=== PATIENT | male | born 1990 | race Caucasian/White ===

== ENCOUNTER 2018-01-04 10:01 | Emergency (ER) | payer MEDICAID ==
[2018-01-04 10:06] VITALS: BMI 27.2
[2018-01-04 10:07] VITALS: BP 141/87
[2018-01-04] MEDS ORDERED: XYLOCAINE 1 % (PLAIN) ONE (10:35)
[2018-01-04] MEDS ORDERED: ROCEPHIN VIAL 1 GM ONE (10:36)
[2018-01-04] MEDS ORDERED: ROCEPHIN VIAL 1 GM IM ONE (10:36)
--- NOTE | 2018-01-04 10:39 | DR.GENAD ---
HPI - PCP Primary Care Physician: NFD - Complaint/Symptoms Chief Complaint Doctors Comments: Patient presents with complaint of pain on buttock of one week duration. He denies taking any medication for treatment except OTC products w/o relief. His pain level is 10/10, sharp, aggravated by sitting. Chief Complaint:: PT STATES " I HAVE ABCESS ON THE SIDE OF MY ASS HOLE". Self Treatment fo Chief Complaint: ASA - Source History Provided: Patient - Mode of Arrival Mode of Arrival: Ambulatory - Timing Onset of Chief Complaint: 12/30/17 PMH - PMH Past Medical History: No Past Surgical History: No - Family History History of Family Medical Conditions: No - Social History Does patient currently use any type of tobacco product: No Have you used tobacco products in the last 12 months: No Type of Tobacco Use: None Does any household member use tobacco: No Alcohol Use: None Lives With: Alone, Family Lives Where: Home - infectious screening In the last 2 months have you had wt loss of >10#?: NO Have you had fever, night sweats or hemotysis?: No Have you traveled outside the country in the last 6 months?: No Isolation: Standard ROS - Review of Systems Eyes: No Symptoms Reported ENTM: No Symptoms Reported Respiratoy: No Symptoms Reported Cardiovascular: No Symptoms Reported Gastrointestinal/Abdominal: No Symptoms Reported Genitourinary: No Symptoms Reported Neurological: No Symptoms Reported Musculoskeletal: No Symptoms Reported Integumentary: Lesions (Inferior left gluteal cheek a tender non erythematous mass c/wo a carbuncle) Hematologic/Lymphatic: No Symptoms Reported Endocrine: No Symptoms Reported Psychiatric: No Symptoms Reported All Other Systems: Reviewed and Negative PE - Vital Signs Vitals: Temperature 96.2 F Pulse Rate 97 Respiratory Rate 18 Blood Pressure 141/87 O2 Sat by Pulse Oximetry 100 - General Limitations: No Limitations General Appearance: Alert - Head Head Exam: Normal Inspection, Atraumatic - Eyes Eye exam: Normal Appearance, PERRL, EOMI - ENT ENT Exam: Normal Exam External Ear Exam: Normal External Inspection TM/Canal Exam: Bilateral Normal Nose Exam: Normal Nose Exam Mouth Exam: Normal Inspection Throat Exam: Normal Inspection - Neck Neck Exam: Normal Inspection, Full ROM - Chest Chest Inspection: Normal Inspection, Symmetric Chest Wall Rise - Respiratory Respiratory Exam: Accessory Muscle Use Respiratory Exam: Bilateral Clear to Auscultation - Cardiovascular Cardiovascular Exam: Regular Rate, Normal Rhythm - Abdominal Exam Abdominal Exam: Normal Inspection, Normal Bowel Sounds Abdominal Tenderness: negative: RUQ, RLQ, LUQ, LLQ, Epigastrium, Suprapubic, Diffuse, Mild, Moderate, Severe, Other - Extremities Extremities Exam: Normal Inspection, Full ROM - Back Back Exam: Normal Inspection - Neurologic Neurological Exam: Alert, Oriented X3, CN II-XII Intact - Psychiatric Psychiatric Exam: Normal Affect - Skin Skin Exam: Warm, Dry, Intact, Other (left inferior gluteal area a tendernes non erythematous mass c/w carbuncle) Course - Treatment Treatment: IM ceftriaxone - Reevaluation 1st: Improved - Diagnosis Discharge Problem: Carbuncle - Discharge Plan Condition: Stable - Follow ups/Referrals Follow ups/Referrals: NFD,None [Primary Care Provider] - 3 days - Instructions
== END 2018-01-04 10:57 | disposition home or self-care (01) ==
LOC: ER 10:19
DX: L02.93 Carbuncle, unspecified (principal)
CPT/HCPCS: 96372; 99282; J0696; J2001